=== PATIENT | male | born 1965 | race Two or more races ===

== ENCOUNTER 2018-12-19 18:39 | Emergency (ER) | payer SELFPAY ==
[~2018-12-19] VITALS: Ht 172.7 cm; Wt 76.4 kg
[2018-12-19 19:10] LABS: BASOPHILS % 0.4 % (0.0-2.0); EOSINOPHILS % 4.6 % (0.0-5.0); HEMATOCRIT. 44.7 % (42.0-52.0); HEMOGLOBIN. 15.2 g/dL (14.0-18.0); LYMPHOCYTES % 39.4 % (20.0-50.0); MEAN CORPUSCULAR HEMOGLOBIN 31.3 pg (28.0-32.0); MEAN CORPUSCULAR VOLUME 92.1 fL (80.0-94.0); MEAN PLATELET VOLUME 8.9 fl (7.4-10.4); MONOCYTES % 6.9 % (2.0-8.0); NEUTROPHILS % 48.7 % (40.0-76.0); PLATELET 192 x1000/uL (130-400); RED BLOOD CELL COUNT 4.85 mill/uL (4.7-6.1); RED CELL DISTRIBUTION WIDTH 12.8 % (11.6-14.6)
[2018-12-19 19:12] LABS: CHLORIDE 103 mEq/L (98-107)
[2018-12-19 19:17] LABS: ETHANOL BLOOD < 10 mg/dL
[2018-12-19 19:20] LABS: LDL CHOLESTEROL 113 mg/dL (5-100)
[2018-12-19 19:22] LABS: CREATINE KINASE 131 IU/L (39-308)
[2018-12-19 19:24] LABS: INR 1.1
[2018-12-19 19:32] VITALS: BP 114/61
== END 2018-12-20 00:16 | disposition home or self-care (01) ==
LOC: ER 18:39 → CANBEDREQ 23:23 → ER 12-20 00:16
DX: G93.40 Encephalopathy, unspecified (principal); E86.0 Dehydration
CPT/HCPCS: 36415; 71045; 80320; 82550; 83721; 83880; 84484; 93005; 99284; G0480